=== PATIENT | male | born 1965 | race African-American/Black ===

== ENCOUNTER 2018-09-12 08:42 | Inpatient (IN) | payer OTHER ==
[2018-09-12 09:17] VITALS: BMI 27.9
--- NOTE | 2018-09-12 11:18 | HP ---
COWS - Scale Resting Pulse: 1= [place] 81-100 Sweatin= Chills/Flushing Restless Observation: 3= Extraneous Movement Pupil Size: 1= Pupils >than Normal Bone or Joint Aches: 2= Severe Diffuse Aches Runny Nose/ Eye Tearin= Runny Nose/Eyes GI Upset > 30mins: 2= Nausea/Diarrhea Tremor Observation: 2= Slight Tremor Visible Yawning Observation: 2= >3x During Session Anxiety or Irritability: 2=Irritable/Anxious Goose Flesh Skin: 0=Smooth Skin COWS Score: 18 CIWA Score - Admission Criteria [facility] Guidelines: Admission for Medically Managed Detox: Requires at least one of the followin. CIWA greater than 12 2. Seizures within the past 24 hours 3. Delirium tremens within the past 24 hours 4. Hallucinations within the past 24 hours 5. Acute intervention needed for co occurring medical disorder 6. Acute intervention needed for co occurring psychiatric disorder 7. Severe withdrawal that cannot be handled at a lower level of care (continued vomiting, continued diarrhea, abnormal vital signs) requiring intravenous medication and/or fluids 8. Admission ROS [facility] Chief Complaint: i need help to stop using heroin,crack,pcp,marijuana, Allergies/Adverse Reactions: Allergies Allergy/AdvReac Type Severity Reaction Status Date / Time No Known Allergies Allergy Verified 09/12/18 11:57 History of Present Illness: this 53 years old male with heroin,crack,pcp,marijuana dependence seeking help, withdrawal symptom,last detox 2018 at [facility] completed mmtp 70 mgs/day,stopped ,laft the program 60 days ago nicotine dependence 10 cigarette/day, hypertension non compliance with medication bipolar disorder non compliance last medication 45 days low back pain for 10 years fx of cheek bone surgery 20years ago - Ebola screening Have you traveled outside of the country in the last 21 days: No (N) Have you had contact with anyone from an Ebola affected area: No Have you been sick,other than usual withdrawal symptoms: No Do you have a fever: No - Review of Systems Constitutional: Chills, Loss of Appetite, Malaise, Night Sweats, Changes in sleep, Weakness, Unintentional Wgt. Loss EENT: reports: Tearing, Nose Congestion, Other (fx of right cheek bone right) Respiratory: reports: No Symptoms reported Cardiac: reports: No Symptoms Reported GI: reports: Nausea, Vomiting, Abdominal cramping : reports: No Symptoms Reported Musculoskeletal: reports: Back Pain, Joint Pain, Muscle Pain, Other (low back pain) Integumentary: reports: Dryness Neuro: reports: Headache, Tremors Endocrine: reports: No Symptoms Reported Hematology: reports: No Symptoms Reported Psychiatric: reports: No Sypmtoms Reported, Judgement Intact, Mood/Affect Appropiate, Orientated x3, other (bipolar isorder) Patient History - Patient Medical History Hx Anemia: No Hx Asthma: No Hx Chronic Obstructive Pulmonary Disease (COPD): No Hx Cancer: No Hx Cardiac Disorders: No Hx Congestive Heart Failure: No Hx Hypertension: Yes (non compliance) Hx Hypercholesterolemia: No Hx Pacemaker: No HX Cerebrovascular Accident: No Hx Seizures: No Hx Dementia: No Hx Diabetes: No Hx Gastrointestinal Disorders: No Hx Liver Disease: No Hx Genitourinary Disorders: No Hx Sexually Transmitted Disorders: No Hx Renal Disease (ESRD): No Hx Thyroid Disease: No Hx Human Immunodeficiency Virus (HIV): No (last 04/15 negative) Hx Hepatitis C: No Hx Depression: No Hx Suicide Attempt: No Hx Bipolar Disorder: Yes (no medication) Hx Schizophrenia: No Other Medical History: no sucidal,no homicidal,low back pain - Patient Surgical History Past Surgical History: Yes Other Surgical History: surgery fo fracture of right facial bone in 1998 - PPD History Documented Results: Negative w/o proof Implanted On Prior [facility] Admission?: No PPD to be Administered?: Yes - Smoking Cessation Smoking history: Current every day smoker Have you smoked in the past 12 months: Yes Aproximately how many cigarettes per day: 10 Cigars Per Day: 0 Hx Chewing Tobacco Use: No Initiated information on smoking cessation: Yes 'Breaking Loose' booklet given: 09/12/18 - Substance & Tx. History Hx Alcohol Use: No Hx Substance Use: Yes Substance Use Type: Cocaine, Heroin, Marijuana Hx Substance Use Treatment: Yes (2018 [facility]) - Substances Abused Heroin Route: Inhalation Frequency: Daily Amount used: 10 bags Age of first use: 14 Date of Last Use: 09/11/18 Crack Route: Smoking Frequency: Daily Amount used: 40$ Age of first use: 14 Date of Last Use: 09/11/18 Marijuana/Hashish Route: Smoking Frequency: Daily Amount used: 20$ Age of first use: 12 Date of Last Use: 09/11/18 PCP Route: Smoking Frequency: Daily Amount used: 50$ Age of first use: 13 Date of Last Use: 09/11/18 Family Disease History - Family Disease History Family Disease History: Other: Father (alcohol,decaesd), Mother (alcohol, ) Admission Physical Exam [facility] - Vital Signs Vital Signs: Vital Signs - 24 hr 09/12/18 09:15 Temperature 96.8 F L Pulse Rate 82 Respiratory 19 Rate Blood Pressure 172/115 H - Physical General Appearance: Yes: Moderate Distress, Tremorous, Irritable, Sweating, Anxious HEENTM: Yes: Normal ENT Inspection, CHIDI, Pharynx Normal Respiratory: Yes: Lungs Clear, Normal Breath Sounds Neck: Yes: Within Normal Limits, Supple, Trachea in good position Breast: Yes: Within Normal Limits Cardiology: Yes: Within Normal Limits, Regular Rhythm, Regular Rate, S1, S2 Abdominal: Yes: Within Normal Limits, Normal Bowel Sounds, Non Tender, Flat, Soft Genitourinary: Yes: Within Normal Limits Back: Yes: Muscle Spasm Extremities: Yes: Within Normal Limits, Normal Range of Motion, Tremors Neurological: Yes: director of child welfare services II-XII NML intact, Alert, Motor Strength 5/5 Integumentary: Yes: Dry Lymphatic: Yes: Within Normal Limits - Diagnostic (1) Opioid dependence with withdrawal Current Visit: Yes Status: Acute (2) Cocaine dependence Current Visit: Yes Status: Acute (3) Cannabis dependence Current Visit: Yes Status: Acute (4) PCP (phencyclidine) abuse Current Visit: Yes Status: Acute (5) Bipolar disorder Current Visit: Yes Status: Acute (6) Nicotine dependence Current Visit: Yes Status: Acute (7) Weight loss Current Visit: Yes Status: Acute (8) Low back pain Current Visit: Yes Status: Acute (9) Lumbar herniated disc Current Visit: Yes Status: Acute Cleared for Admission [facility] - Detox or Rehab [facility] Level of Care: Medically Managed Detox Regimen/Protocol: Methadone [facility] Breath Alcohol Content Breath Alcohol Content: 0 Urine Drug Screen - Results Drug Screen Negative: No Urine Drug Screen Results: PADMA-Cocaine, OPI-Opiates Inpatient Rehab Admission - Rehab Decision to Admit Inpatient rehab admission?: No
[2018-09-12] MEDS ORDERED: METHOCARBAMOL 500 MG TABLET PO PRN (11:35)
[2018-09-12] MEDS ORDERED: hydrOXYzine PAMOATE 25 MG CAPSULE (FP) PO PRN (11:35)
[2018-09-12] MEDS ORDERED: MAG HYDROX/AL HYDROX/SIMETH 30 ML UNIT-DOSE CUP PO PRN (11:35)
[2018-09-12] MEDS ORDERED: BISMUTH SUBSALICYLATE 524 MG/30 ML UD PO PRN (11:35)
[2018-09-12] MEDS ORDERED: IBUPROFEN 400 MG TABLET (FP) PO PRN (11:35)
[2018-09-12] MEDS ORDERED: ACETAMINOPHEN 325 MG TABLET (FP) PO PRN ×2 (11:35)
[2018-09-12] MEDS ORDERED: MENTHOL/PHENOL 1 EACH UD MM PRN (11:35)
[2018-09-12] MEDS ORDERED: MELATONIN 5 MG TABLETS PO PRN (11:35)
[2018-09-12] MEDS ORDERED: MAGNESIUM CITRATE 300 ML BOTTLE PO PRN (11:35)
[2018-09-12] MEDS ORDERED: MAGNESIUM HYDROX 2400MG/30ML ORAL SUSPENSION 30 ML CUP PO PRN (11:35)
[2018-09-12] MEDS ORDERED: METHADONE HCL 10 MG TABLET (FOR DETOX USE ONLY) PO ONE ×2 (11:40→23:00)
[2018-09-12] MEDS ORDERED: cloNIDine HCL 0.1 MG TABLET PO ONE (11:45)
[2018-09-12] MEDS: diazePAM 5 MG TABLET PO PRN (13:14)
[2018-09-12] MEDS: THIAMINE HCL 100 MG TABLET (FP) PO SCH (22:22)
[2018-09-12] MEDS: cloNIDine HCL 0.1 MG TABLET PO PRN (22:22)
[2018-09-13 09:59] LABS: URINE APPEARANCE CLEAR; URINE BILIRUBIN NEGATIVE (<2.0 mg/dL); URINE COLOR COLORLESS; URINE GLUCOSE (UA) NEGATIVE (NEGATIVE); URINE KETONE NEGATIVE (NEGATIVE); URINE LEUK ESTERASE NEGATIVE (NEGATIVE); URINE NITRITE NEGATIVE (NEGATIVE); URINE PROTEIN 1+ (NEGATIVE); URINE UROBILINOGEN NEGATIVE mg/dL (0.2-1.0)
[2018-09-13] MEDS ORDERED: METHADONE HCL 10 MG TABLET (FOR DETOX USE ONLY) PO ONE (10:00)
[2018-09-13 10:03] LABS: HEMATOCRIT 31.4 % (35.4-49); HEMOGLOBIN 10.9 GM/dL (11.7-16.9); MCH 30.6 pg (25.7-33.7); MCHC 34.7 g/dl (32.0-35.9); MEAN CELL VOLUME 88.2 fl (80-96); MEAN PLT VOLUME 8.9 fl (7.5-11.1); PLATELET COUNT 303 K/MM3 (134-434); RBC 3.56 M/mm3 (4.00-5.60); RDW 15.1 % (11.9-15.9)
[2018-09-13] MEDS: PRENATAL VITAMINS W/ FOLIC ACID TABLET (FP) PO SCH (10:17)
[2018-09-13] MEDS: diazePAM 5 MG TABLET PO PRN (10:17)
[2018-09-13 10:23] LABS: ALBUMIN 3.4 g/dl (3.4-5.0); ALK PHOS 139 U/L (45-117); ANION GAP 8 MMOL/L (8-16); BILIRUBIN,TOTAL 0.2 mg/dL (0.2-1); BLOOD UREA NITROGEN 36 mg/dL (7-18); CALCIUM 8.4 mg/dL (8.5-10.1); CHLORIDE 104 mmol/L (98-107); CO2 27 mmol/L (21-32); CREATININE 3.2 mg/dL (0.55-1.3); GLUCOSE,RANDOM 106 mg/dL (74-106); POTASSIUM 3.7 mmol/L (3.5-5.1); SGOT/AST 30 U/L (15-37); SGPT/ALT 44 U/L (13-61); SODIUM 139 mmol/L (136-145); TOT PROT 6.8 g/dl (6.4-8.2)
--- NOTE | 2018-09-13 11:00 | PN ---
[facility]HS COWS - Scale Resting Pulse: 0= ID 80 or Below Sweatin= Chills/Flushing Restless Observation: 1= Difficult to Sit Still Pupil Size: 1= Pupils >than Normal Bone or Joint Aches: 2= Severe Diffuse Aches Runny Nose/ Eye Tearin= Runny Nose/Eyes GI Upset > 30mins: 1= Stomach Cramp Tremor Observation of Outstretched Hands: 2= Slight Tremor Visible Yawning Observation: 2= >3x During Session Anxiety or Irritability: 2=Irritable/Anxious Goose Flesh Skin: 0=Smooth Skin COWS Score: 14 BHS Progress Note (SOAP) Subjective: body aches stuffy nose tremor sweating Objective: 09/13/18 10:57 Vital Signs Temperature 98.4 F 09/13/18 09:02 Pulse Rate 85 09/13/18 09:02 Respiratory Rate 18 09/13/18 09:02 Blood Pressure 112/68 09/13/18 09:02 O2 Sat by Pulse Oximetry (%) Laboratory Last Values WBC 5.0 K/mm3 (4.0-10.0) 09/13/18 07:40 RBC 3.56 M/mm3 (4.00-5.60) L 09/13/18 07:40 Hgb 10.9 GM/dL (11.7-16.9) L 09/13/18 07:40 Hct 31.4 % (35.4-49) L 09/13/18 07:40 MCV 88.2 fl (80-96) 09/13/18 07:40 MCH 30.6 pg (25.7-33.7) 09/13/18 07:40 MCHC 34.7 g/dl (32.0-35.9) 09/13/18 07:40 RDW 15.1 % (11.9-15.9) 09/13/18 07:40 Plt Count 303 K/MM3 (134-434) 09/13/18 07:40 MPV 8.9 fl (7.5-11.1) 09/13/18 07:40 Sodium 139 mmol/L (136-145) 09/13/18 07:40 Potassium 3.7 mmol/L (3.5-5.1) 09/13/18 07:40 Chloride 104 mmol/L (98-107) 09/13/18 07:40 Carbon Dioxide 27 mmol/L (21-32) 09/13/18 07:40 Anion Gap 8 MMOL/L (8-16) 09/13/18 07:40 BUN 36 mg/dL (7-18) H 09/13/18 07:40 Creatinine 3.2 mg/dL (0.55-1.3) H 09/13/18 07:40 Creat Clearance w eGFR 20.27 (>60) 09/13/18 07:40 Random Glucose 106 mg/dL (74-106) 09/13/18 07:40 Calcium 8.4 mg/dL (8.5-10.1) L 09/13/18 07:40 Total Bilirubin 0.2 mg/dL (0.2-1) 09/13/18 07:40 AST 30 U/L (15-37) 09/13/18 07:40 ALT 44 U/L (13-61) 09/13/18 07:40 Alkaline Phosphatase 139 U/L (45-117) H 09/13/18 07:40 Total Protein 6.8 g/dl (6.4-8.2) 09/13/18 07:40 Albumin 3.4 g/dl (3.4-5.0) 09/13/18 07:40 Urine Color Colorless 09/13/18 07:40 Urine Appearance Clear 09/13/18 07:40 Urine pH 6.0 (5.0-8.0) 09/13/18 07:40 Ur Specific [place] 1.005 (1.010-1.035) L 09/13/18 07:40 Urine Protein 1+ (NEGATIVE) H 09/13/18 07:40 Urine Glucose (UA) Negative (NEGATIVE) 09/13/18 07:40 Urine Ketones Negative (NEGATIVE) 09/13/18 07:40 Urine Blood Negative (NEGATIVE) 09/13/18 07:40 Urine Nitrite Negative (NEGATIVE) 09/13/18 07:40 Urine Bilirubin Negative (<2.0 mg/dL) 09/13/18 07:40 Urine Urobilinogen Negative mg/dL (0.2-1.0) 09/13/18 07:40 Ur Leukocyte Esterase Negative (NEGATIVE) 09/13/18 07:40 Urine WBC (Auto) <1 /hpf (3-5) 09/13/18 07:40 Urine RBC (Auto) None /hpf (0-3) 09/13/18 07:40 lab noted Assessment: 09/13/18 10:59 opiate withdrawal sx Plan: continue detox
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
[2018-09-13] MEDS: cloNIDine HCL 0.1 MG TABLET PO PRN (18:12)
[2018-09-13] MEDS: THIAMINE HCL 100 MG TABLET (FP) PO SCH (22:42)
--- NOTE | 2018-09-13 22:53 | EKG ---
Test Reason : Blood Pressure : / mmHG Vent. Rate : 083 BPM Atrial Rate : 083 BPM P-R Int : 132 ms QRS Dur : 106 ms QT Int : 414 ms P-R-T Axes : 061 057 022 degrees QTc Int : 486 ms NORMAL SINUS RHYTHM POSSIBLE LEFT ATRIAL ENLARGEMENT LEFT VENTRICULAR HYPERTROPHY NONSPECIFIC ST AND T WAVE ABNORMALITY PROLONGED QT ABNORMAL ECG NO PREVIOUS ECGS AVAILABLE Confirmed by DONOVAN HOYOS MD ([id number]) on 09/13/2018 10:53:10 PM Referred By: Confirmed By:DONOVAN HOYOS MD
[2018-09-14] MEDS: diazePAM 5 MG TABLET PO PRN (09:06)
[2018-09-14] MEDS: PRENATAL VITAMINS W/ FOLIC ACID TABLET (FP) PO SCH (09:06)
[2018-09-14] MEDS: cloNIDine HCL 0.1 MG TABLET PO PRN (09:06)
--- NOTE | 2018-09-14 09:08 | PN ---
BHS COWS - Scale Resting Pulse: 1= [place] 81-100 Sweatin= Chills/Flushing Restless Observation: 1= Difficult to Sit Still Pupil Size: 1= Pupils >than Normal Bone or Joint Aches: 1= Mild Discomfort Runny Nose/ Eye Tearin= Nasal Congestion GI Upset > 30mins: 1= Stomach Cramp Tremor Observation of Outstretched Hands: 1= Tremor Cocoa, Not Seen Yawning Observation: 1= 1-2x During Session Anxiety or Irritability: 1=Feels Anxious/Irritable Goose Flesh Skin: 0=Smooth Skin COWS Score: 10 BHS Progress Note (SOAP) Subjective: patient has asymptomatic elevated bp patient denies headaches no shortness of breath no chest pain patient acknowledged his renal function agreed to follow up with his primary care provider reporting opiate withdrawal symptoms of muscle cramping anxiety and trouble sleep at night Objective: 09/14/18 09:10 Vital Signs Temperature 96.6 F L 09/14/18 06:00 Pulse Rate 85 09/14/18 06:00 Respiratory Rate 20 09/14/18 06:00 Blood Pressure 169/84 09/14/18 06:00 O2 Sat by Pulse Oximetry (%) Laboratory Last Values WBC 5.0 K/mm3 (4.0-10.0) 09/13/18 07:40 RBC 3.56 M/mm3 (4.00-5.60) L 09/13/18 07:40 Hgb 10.9 GM/dL (11.7-16.9) L 09/13/18 07:40 Hct 31.4 % (35.4-49) L 09/13/18 07:40 MCV 88.2 fl (80-96) 09/13/18 07:40 MCH 30.6 pg (25.7-33.7) 09/13/18 07:40 MCHC 34.7 g/dl (32.0-35.9) 09/13/18 07:40 RDW 15.1 % (11.9-15.9) 09/13/18 07:40 Plt Count 303 K/MM3 (134-434) 09/13/18 07:40 MPV 8.9 fl (7.5-11.1) 09/13/18 07:40 Sodium 139 mmol/L (136-145) 09/13/18 07:40 Potassium 3.7 mmol/L (3.5-5.1) 09/13/18 07:40 Chloride 104 mmol/L (98-107) 09/13/18 07:40 Carbon Dioxide 27 mmol/L (21-32) 09/13/18 07:40 Anion Gap 8 MMOL/L (8-16) 09/13/18 07:40 BUN 36 mg/dL (7-18) H 09/13/18 07:40 Creatinine 3.2 mg/dL (0.55-1.3) H 09/13/18 07:40 Creat Clearance w eGFR 20.27 (>60) 09/13/18 07:40 Random Glucose 106 mg/dL (74-106) 09/13/18 07:40 Calcium 8.4 mg/dL (8.5-10.1) L 09/13/18 07:40 Total Bilirubin 0.2 mg/dL (0.2-1) 09/13/18 07:40 AST 30 U/L (15-37) 09/13/18 07:40 ALT 44 U/L (13-61) 09/13/18 07:40 Alkaline Phosphatase 139 U/L (45-117) H 09/13/18 07:40 Total Protein 6.8 g/dl (6.4-8.2) 09/13/18 07:40 Albumin 3.4 g/dl (3.4-5.0) 09/13/18 07:40 Urine Color Colorless 09/13/18 07:40 Urine Appearance Clear 09/13/18 07:40 Urine pH 6.0 (5.0-8.0) 09/13/18 07:40 Ur Specific [place] 1.005 (1.010-1.035) L 09/13/18 07:40 Urine Protein 1+ (NEGATIVE) H 09/13/18 07:40 Urine Glucose (UA) Negative (NEGATIVE) 09/13/18 07:40 Urine Ketones Negative (NEGATIVE) 09/13/18 07:40 Urine Blood Negative (NEGATIVE) 09/13/18 07:40 Urine Nitrite Negative (NEGATIVE) 09/13/18 07:40 Urine Bilirubin Negative (<2.0 mg/dL) 09/13/18 07:40 Urine Urobilinogen Negative mg/dL (0.2-1.0) 09/13/18 07:40 Ur Leukocyte Esterase Negative (NEGATIVE) 09/13/18 07:40 Urine WBC (Auto) <1 /hpf (3-5) 09/13/18 07:40 Urine RBC (Auto) None /hpf (0-3) 09/13/18 07:40 RPR Titer Nonreactive (NONREACTIVE) 09/13/18 07:40 HIV 1&2 Antibody Screen Negative 09/13/18 07:40 HIV P24 Antigen Negative 09/13/18 07:40 lab noted begin lisinopril 10 mg po bid Assessment: 09/14/18 09:11 withdrawal sx hypertension Plan: continue detox
[2018-09-14 09:26] VITALS: BP 162/100; PULSE 89; TEMP 97
[2018-09-14] MEDS ORDERED: LISINOPRIL 10 MG TABLET (FP) PO SCH (10:00)
[2018-09-14] MEDS ORDERED: METHADONE HCL 10 MG TABLET (FOR DETOX USE ONLY) PO ONE (10:00)
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
[2018-09-14 11:24] LABS: HEMATOCRIT 29.6 % (35.4-49); HEMOGLOBIN 10.5 GM/dL (11.7-16.9); MCH 31.5 pg (25.7-33.7); MCHC 35.3 g/dl (32.0-35.9); PLATELET COUNT 319 K/MM3 (134-434); RBC 3.33 M/mm3 (4.00-5.60); RDW 15.9 % (11.9-15.9); WHITE BLOOD COUNT 5.2 K/mm3 (4.0-10.0)
[2018-09-15] MEDS ORDERED: METHADONE HCL 10 MG TABLET (FOR DETOX USE ONLY) PO ONE (10:00)
[2018-09-16] MEDS ORDERED: METHADONE HCL 5 MG TABLET (FOR DETOX USE ONLY) PO ONE (06:00)
== END 2018-09-14 10:55 | disposition left against medical advice (07) | DRG 773 ==
LOC: YASAS 08:42 → Y3N 11:52
PROVIDERS: ADMIT Surgery; ATTEND Surgery
PROC: HZ2ZZZZ Detoxification Services for Substance Abuse Treatment (ICD-10-PCS; principal; 2018-09-12)
DX: F11.23 Opioid dependence with withdrawal (principal); F14.20 Cocaine dependence, uncomplicated; F12.20 Cannabis dependence, uncomplicated; F16.10 Hallucinogen abuse, uncomplicated; F17.210 Nicotine dependence, cigarettes, uncomplicated; F31.9 Bipolar disorder, unspecified; I10 Essential (primary) hypertension; N28.9 Disorder of kidney and ureter, unspecified; R25.9 Unspecified abnormal involuntary movements; Z91.19 Patient's noncompliance with other medical treatment and regimen
CPT/HCPCS: 36415; 80053; 81003; 81015; 85027; 86593; 87389; 93005; 93010; J0735